=== PATIENT | male | born 1975 | race Caucasian/White ===

== ENCOUNTER 2016-06-25 08:12 | Emergency (ER) | payer BC ==
--- NOTE | 2016-06-25 09:29 | ER Document Report ---
HPI - HPI Patient complains to provider of: punched table Onset: Yesterday Onset/Duration: Sudden Quality of pain: Throbbing Pain Level: 3 Context: 41 yo punched table in anger, Right 5th MC was poking out, he manipulated it so it was straight. No previous Fx. Associated Symptoms: None Exacerbated by: Denies Relieved by: Denies Similar symptoms previously: No Recently seen / treated by doctor: No - ROS ROS below otherwise negative: Yes Systems Reviewed and Negative: Yes All other systems reviewed and negative - MUSCULOSKELETAL Musculoskeletal: REPORTS: Extremity pain - DERM Skin Color: Normal - NURSING COMMENTS Comment: Pt states that he hit his R hand on the coffee table. States that he reduced it himself. States that it is swollen. Reports hx of fracturing same wrist. Positive circulation and cap refill noted. Pt AAOX3 with NAD noted at this time. Past Medical History - General Information source: Patient - Social History Smoking Status: Current Every Day Smoker Cigarette use (# per day): No Chew tobacco use (# tins/day): No Frequency of alcohol use: Social Drug Abuse: None Lives with: Spouse/Significant other Family History: Reviewed & Not Pertinent Patient has suicidal ideation: No Patient has homicidal ideation: No Renal/ Medical History: Denies: Hx Peritoneal Dialysis Traumatic Medical History: Reports: Hx Fractures - hip, collarbone, wrist, back Past Surgical History: Reports: Hx Appendectomy, Hx Orthopedic Surgery - Titanium placement in L hip and lower back - Immunizations Immunizations up to date: Yes Hx Diphtheria, Pertussis, Tetanus Vaccination: Yes - 2009 Vertical Provider Document - CONSTITUTIONAL Agree With Documented VS: Yes Exam Limitations: No Limitations General Appearance: No Apparent Distress - INFECTION CONTROL TRAVEL OUTSIDE OF THE [place] IN LAST 30 DAYS: No - HEENT HEENT: Normocephalic - NECK Neck: Supple - RESPIRATORY O2 Sat by Pulse Oximetry: 100 - MUSCULOSKELETAL/EXTREMETIES Musculoskeletal/Extremeties: YFN, FROM Notes: no rotational deviation. tender and swollen right dital 5th MC - NEURO Level of Consciousness: Awake, Alert Motor/Sensory: No Motor Deficit, No Sensory Deficit - DERM Integumentary: Warm, Dry Course - Vital Signs Vital signs: Temp Pulse Resp BP Pulse Ox 97.5 F 70 16 147/90 H 100 06/25/16 08:17 06/25/16 08:17 06/25/16 08:17 06/25/16 08:17 06/25/16 08:17 Procedures - Immobilization Right Hand Time completed: 09:35 Pre-Proc Neuro Vasc Exam: Normal Immobilizer type: Ulnar Performed by: PCT Post-Proc Neuro Vasc Exam: Normal Alignment checked and good: Yes Discharge - Discharge Clinical Impression: distal rt 5th MC fx Condition: Good Disposition: HOME, SELF-CARE Instructions: Fractured Fifth Metacarpal ([facility]), Temporary Splint ([facility]), Splint Precautions ([facility]), Temporary Sling ([facility]) Additional Instructions: call dr. wing office today for appointment keep the splint on to er any concerns Prescriptions: Ibuprofen [Motrin 800 mg Tablet] 800 mg PO Q8HP PRN #30 tablet PRN Reason: Forms: Return to Work Referrals: LEE WING MD [ACTIVE STAFF] - Follow up in 3-5 days
[2016-06-25 09:41] VITALS: BP 116/79
== END 2016-06-25 09:57 | disposition home or self-care (01) ==
LOC: ER 08:12
PROC: 2W3CX1Z Immobilization of Right Lower Arm using Splint (ICD-10-PCS; principal; 2016-06-25)
DX: S62.306A Unspecified fracture of fifth metacarpal bone, right hand, initial encounter for closed fracture (principal); W22.03XA Walked into furniture, initial encounter; F17.200 Nicotine dependence, unspecified, uncomplicated
CPT/HCPCS: 99283

== ENCOUNTER 2016-09-25 08:28 | Emergency (ER) | payer BC ==
[2016-09-25] MEDS ORDERED: OXYCODONE-ACETAMINOPHEN 5-325 MG TABLET PO ONE (09:11)
[2016-09-25] MEDS ORDERED: SULFAMETHOXAZOLE/TRIMETHOPRIM 800-160 MG TABLET PO ONE (09:11)
[2016-09-25] MEDS ORDERED: CEPHALEXIN 500 MG CAPSULE PO ONE (09:11)
--- NOTE | 2016-09-25 09:13 | ER Document Report ---
HPI - HPI Patient complains to provider of: Right elbow pain and swelling Onset: Yesterday Onset/Duration: Gradual Quality of pain: Achy Pain Level: 2 Context: Patient states that he cut his right elbow 5 days ago on a piece of glass. Patient states that 2 days ago he squeezed on his elbow and was able to drain some pus from the above. Patient complains of right elbow pain and redness. No fever. No additional purulent drainage noted. Associated Symptoms: Other - Elbow pain. denies: Fever Exacerbated by: Movement Relieved by: Denies Similar symptoms previously: No Recently seen / treated by doctor: No - ROS ROS below otherwise negative: Yes Systems Reviewed and Negative: Yes All other systems reviewed and negative - CONSTITUTIONAL Constitutional: DENIES: Fever - GASTROINTESTINAL Gastrointestinal: DENIES: Nausea - MUSCULOSKELETAL Musculoskeletal: REPORTS: Extremity pain, Swelling - DERM Skin Color: Erythema Skin Problems: Puncture Wound Past Medical History - General Information source: Patient - Social History Smoking Status: Current Every Day Smoker Frequency of alcohol use: None Drug Abuse: None Occupation: painting Family History: Reviewed & Not Pertinent Patient has suicidal ideation: No Patient has homicidal ideation: No - Medical History Medical History: Negative Renal/ Medical History: Denies: Hx Peritoneal Dialysis Traumatic Medical History: Reports: Hx Fractures - hip, collarbone, wrist, back Past Surgical History: Reports: Hx Appendectomy, Hx Orthopedic Surgery - Titanium placement in L hip and lower back - Immunizations Immunizations up to date: Yes Hx Diphtheria, Pertussis, Tetanus Vaccination: Yes - 2009 Vertical Provider Document - CONSTITUTIONAL Agree With Documented VS: Yes Exam Limitations: No Limitations General Appearance: WD/WN, No Apparent Distress - INFECTION CONTROL TRAVEL OUTSIDE OF THE [place] IN LAST 30 DAYS: No - HEENT HEENT: Atraumatic, Normocephalic - NECK Neck: Normal Inspection - RESPIRATORY Respiratory: Breath Sounds Normal, No Respiratory Distress O2 Sat by Pulse Oximetry: 97 - CARDIOVASCULAR Cardiovascular: Regular Rate, Regular Rhythm Pulses: Normal: Radial - MUSCULOSKELETAL/EXTREMETIES Musculoskeletal/Extremeties: MAEW, FROM, Tender - Tenderness over olecranon process of right elbow area mildly edematous - NEURO Level of Consciousness: Awake, Alert, Appropriate Motor/Sensory: No Motor Deficit - DERM Integumentary: Warm, Dry, Laceration - Laceration over right olecranon process with surrounding erythema and 1+ edema, normal range of motion to joint Course - Vital Signs Vital signs: Temp Pulse Resp BP Pulse Ox 97.8 F 89 18 124/91 H 97 09/25/16 08:32 09/25/16 08:32 09/25/16 08:32 09/25/16 08:32 09/25/16 08:32 - Diagnostic Test Radiology reviewed: Pending, Image reviewed Discharge - Discharge Clinical Impression: Cellulitis Qualifiers: Site of cellulitis: extremity Site of cellulitis of extremity: upper extremity Laterality: right Qualified Code(s): L03.113 - Cellulitis of right upper limb Condition: Stable Disposition: HOME, SELF-CARE Instructions: Cellulitis ([facility]), Cephalexin ([facility]), Trimethoprim-Sulfa ([facility]), Oral Narcotic Medication ([facility]) Additional Instructions: Return immediately for any new or worsening symptoms Followup with your primary care provider, call tomorrow to make a followup appointment Prescriptions: Cephalexin Monohydrate [Keflex 500 mg Capsule] 500 mg PO Q6H 7 Days Oxycodone HCl/Acetaminophen [Percocet 5-325 mg Tablet] 1 tab PO ASDIR PRN #15 tablet PRN Reason: Sulfamethoxazole/Trimethoprim [Bactrim Ds Tablet] 1 each PO BID #20 tablet Referrals: [facility] [Provider Group] - 09/27/16
[2016-09-25 11:24] VITALS: BP 111/69
== END 2016-09-25 11:23 | disposition home or self-care (01) ==
LOC: ER 08:28
DX: S51.011A Laceration without foreign body of right elbow, initial encounter (principal); L03.113 Cellulitis of right upper limb; W25.XXXA Contact with sharp glass, initial encounter; F17.200 Nicotine dependence, unspecified, uncomplicated
CPT/HCPCS: 99283

== ENCOUNTER 2018-08-10 01:17 | Emergency (ER) | payer BC, MEDICARE ==
[2018-08-10] MEDS ORDERED: NORMAL SALINE 1000 ML 1,000 ML IV ONE (02:11)
--- NOTE | 2018-08-10 02:11 | ER Document Report ---
ED General - General Chief Complaint: Probable Seizure Stated Complaint: POSS SEIZURE Time Seen by Provider: 08/10/18 02:01 Primary Care Provider: BERNY CHAMPAGNE MD [NO LOCAL MD] - Follow up in 3-5 days Notes: Patient is a 43-year-old male with no previous past medical history other than stress that presents with complaint of a seizure. says that they just finishing playing outside at the house and then he suddenly went to the floor and started having tonic-clonic type seizure movement that lasted 3-5 minutes. He then had a postictal state. Patient currently is awake and alert and says his only complaint is that he feels kind of weak and dizzy. He does admit he is been under a lot of stress recently. Says he smokes marijuana to deal with the stress. He drinks 3-4 beers a day. He denies any history of alcohol withdrawal and says he can easily go 24 hours without drinking alcohol without any issues. No fevers. He is not taking medications. No other complaints at this time. No previous history of seizures. The only area that he has pain is from where he hit his head. He has a small hematoma in the left parietal occipital region. No other injuries or areas of pain. TRAVEL OUTSIDE OF THE [place] IN LAST 30 DAYS: No - Related Data Allergies/Adverse Reactions: No Known Allergies Allergy (Verified 08/10/18 02:23) Past Medical History - Social History Smoking Status: Current Every Day Smoker Frequency of alcohol use: 3-4 beers a day Drug Abuse: Marijuana Family History: Reviewed & Not Pertinent Renal/ Medical History: Denies: Hx Peritoneal Dialysis Traumatic Medical History: Reports: Hx Fractures - hip, collarbone, wrist, back Past Surgical History: Reports: Hx Appendectomy, Hx Orthopedic Surgery - Titanium placement in L hip and lower back - Immunizations Immunizations up to date: Yes Hx Diphtheria, Pertussis, Tetanus Vaccination: Yes - 2009 Review of Systems - Review of Systems Notes: My Normal Review Basic REVIEW OF SYSTEMS: CONSTITUTIONAL : Denies fever, chills, or sweats. Denies recent illness. EENT: Denies eye, ear, throat, or mouth pain or symptoms. Denies nasal or sinus congestion. CARDIOVASCULAR: Denies chest pain. RESPIRATORY: Denies cough, cold, or chest congestion. Denies shortness of breath, difficulty breathing, or wheezing. GASTROINTESTINAL: Denies abdominal pain. Denies nausea, vomiting, or diarrhea. MUSCULOSKELETAL: Denies neck or back pain or joint pain or swelling. SKIN: Denies rash or skin lesions. NEUROLOGICAL: Had a seizure. Denies headache. Denies weakness or paralysis or loss of use of either side. Denies problems with gait or speech. Denies sensory or motor loss. ALL OTHER SYSTEMS REVIEWED AND NEGATIVE. Physical Exam - Vital signs Vitals: Pulse Resp BP Pulse Ox 84 14 123/94 H 97 08/10/18 01:18 08/10/18 01:18 08/10/18 01:18 08/10/18 01:18 - Notes Notes: General Appearance: Well nourished, alert, cooperative, no acute distress, no obvious discomfort. Vitals: reviewed, See vital signs table. Head: Small hematoma in the left parietal occipital area. No laceration. Eyes: PERRL, EOMI, Conjuctiva clear Mouth: No decreasd moisture Throat: No tonsillar inflammation, No airway obstruction, No lymphadenopathy Neck: Supple, no neck tenderness, No cervical spine tenderness to palpation Lungs: No wheezing, No rales, No rhonci, No accessory muscle use, good air exc hange bilaterally. Heart: Normal rate, Regular rythm, No murmur, no rub Abdomen: Normal BS, soft, No rigidity, No abdominal tenderness, No guarding, no rebound, no abdominal masses, no organomegaly Extremities: strength 5/5 in all extremities, good pulses in all extremities, no swelling or tenderness in the extremities, no edema. Skin: warm, dry, appropriate color, no rash Neuro: speech clear, oriented x 3, normal affect, responds appropriately to questions. Renal nerves II through XII are intact. Distal sensation intact. Patient moves all extremities without difficulty. Course - Re-evaluation Re-evalutation: 08/10/18 07:23 Patient's blood work and CT scan are normal. Patient has what sounds to be a seizure witnessed by his girlfriend. Patient has been under a lot of stress recently and has not been sleeping well and has been working a lot. This could be why he had a seizure. I informed him that he still should not drive until cleared by the neurologist. I will refer him to Dr. Champagne. I encouraged him return to ER if he has recurrent seizures or feels unwell. Patient and agree with plan patient will be discharged home. Dictation of this chart was performed using voice recognition software; there fore, there may be some unintended grammatical errors. - Vital Signs Vital signs: Temp Pulse Resp BP Pulse Ox 84 19 108/73 96 08/10/18 01:18 08/10/18 04:01 08/10/18 04:00 08/10/18 04:01 - Laboratory Result Diagrams: 08/10/18 01:26 08/10/18 01:26 Laboratory results interpreted by me: 08/10/18 01:26 RBC 4.31 L MCV 100 H MCH 34.9 H RDW 14.8 H Discharge - Discharge Clinical Impression: Seizure Condition: Good Disposition: HOME, SELF-CARE Additional Instructions: Please try to rest over the next 24 hours. Please do not drink alcohol. Please follow-up with Dr. Champagne, neurologist, reevaluation. You cannot drive until cleared by the neurologist. Please return to ER immediately for fevers, recurrent seizures, or feel unwell. Forms: Return to Work Referrals: BERNY CHAMPAGNE MD [NO LOCAL MD] - Follow up in 3-5 days
[2018-08-10 02:18] LABS: ABSOLUTE EOSINOPHILS # (AUTO) 0.3 10^3/uL (0.0-0.6); ABSOLUTE LYMPHOCYTES (AUTO) 2.4 10^3/uL (0.5-4.7); ABSOLUTE MONOCYTES (AUTO) 0.8 10^3/uL (0.1-1.4); ABSOLUTE NEUT (AUTO) 5.5 10^3/uL (1.7-8.2); BASOPHILS % (AUTO) 0.2 % (0-2); EOSINOPHILS % (AUTO) 3.8 % (0-6); HEMOGLOBIN 15.1 g/dL (13.5-17.0); LYMPHOCYTES % (AUTO) 26.2 % (13-45); MEAN CORPUSCULAR HEMOGLOBIN 34.9 pg (27.0-33.4); MEAN CORPUSCULAR HGB CONC 35.1 g/dL (32.0-36.0); MEAN CORPUSCULAR VOLUME 100 fl (80-97); MONOCYTES % (AUTO) 8.6 % (3-13); PLATELET COUNT 229 10^3/uL (150-450); RED BLOOD COUNT 4.31 10^6/uL (4.35-5.55); RED CELL DISTRIBUTION WIDTH 14.8 % (11.5-14.0); SEGMENTED NEUTROPHILS % (AUTO) 61.2 % (42-78); TOTAL CELLS COUNTED % (AUTO) 100 %
[2018-08-10 02:19] LABS: ANION GAP 9 (5-19); BLOOD UREA NITROGEN 18 mg/dL (7-20); CALCIUM 9.7 mg/dL (8.4-10.2); CARBON DIOXIDE 25 mmol/L (22-30); CHLORIDE 105 mmol/L (98-107); GLUCOSE 106 mg/dL (75-110); POTASSIUM 3.6 mmol/L (3.6-5.0); SODIUM 138.7 mmol/L (137-145)
--- NOTE | 2018-08-10 02:44 | RADIOLOGY REPORT (SQ) ---
EXAM DESCRIPTION: CT HEAD WITHOUT IV CONTRAST COMPLETED DATE/TME: 08/10/2018 02:08 CLINICAL HISTORY: 43 years, Male, seizure COMPARISON: None Available. Technique: Contiguous axial images of the brain were obtained without the administration of intravenous contrast. Coronal and sagittal reformats obtained and reviewed. This exam was performed according to our departmental dose-optimization program which includes use of Automated Exposure Control, adjustment of the mA and/or kV according to patient size and/or use of iterative reconstruction technique. Findings: Brain: No hemorrhage. No territorial infarct. No mass effect. No herniation. Ventricles: Within normal limits for patient's age. Bones: No acute osseous abnormality. Paranasal sinuses: Unremarkable. Mastoid air cells: Unremarkable. Soft tissues: Mild soft tissue swelling over the left parietal scalp. IMPRESSION: No acute intracranial abnormalities.
[2018-08-10 04:32] VITALS: BP 108/73
== END 2018-08-10 04:31 | disposition home or self-care (01) ==
LOC: ER 01:17
DX: R56.9 Unspecified convulsions (principal); R53.1 Weakness; R42 Dizziness and giddiness; F17.200 Nicotine dependence, unspecified, uncomplicated
CPT/HCPCS: 99285; 96360; 36415; 85025; 80048; 70450; J7030